=== PATIENT | female | born 1995 ===

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

== ENCOUNTER → 2017-01-11 | Outpatient (REF) | LOC: WSOH 11:25 | DX: Z02.89 Encounter for other administrative examinations (principal) ==

== ENCOUNTER → 2017-01-13 | Outpatient (REF) | LOC: WSOH 12:30 | DX: Z02.89 Encounter for other administrative examinations (principal) ==